=== PATIENT | male | born 1960 | race Caucasian/White ===

== ENCOUNTER 2016-09-11 12:37 | Day surgery (SDC) | payer OTHER ==
[~2016-09-11] VITALS: Ht 188 cm; Wt 90.5 kg
[~2016-09-11 12:37] MED LIST: GABA300C3 PO; LANSO15 PO; MISC1TAB9 PO; NAPR250T57 PO; VITA200017 PO; ZOCO40TA PO; [UNRECOGNIZED DRUG - CODE]; [UNRECOGNIZED DRUG - CODE] PO
[2016-09-11 13:27] VITALS: BP 143/81; PULSE 57; RESP 18; TEMP 97.8; O2SAT 100
[2016-09-11] MEDS ORDERED: NS 1000P @30 MLS/HR (KVO) IV SCH (13:30)
[2016-09-11 13:38] LABS: AUTOMATED NEUTROPHIL # 2.1 TH/MM3 (1.8-7.7); BASOPHIL % 0.7 % (0.0-2.0); EOSINOPHIL # 0.1 TH/MM3 (0-0.4); EOSINOPHIL % 3.3 % (0.0-4.0); HEMATOCRIT 41.4 % (39.0-51.0); HEMO FLAGS DIFF FINAL; LYMPHOCYTE # 1.8 TH/MM3 (1.0-4.8); MEAN CELL VOLUME 93.6 FL (80.0-100.0); MEAN CORPUSCULAR HEMOGLOBIN 30.7 PG (27.0-34.0); MEAN CORPUSCULAR HGB CONC 32.8 % (32.0-36.0); MONO % 7.2 % (0.0-8.0); NEUT % 47.8 % (16.0-70.0); PLATELET COUNT 176 TH/MM3 (150-450); RED BLOOD COUNT 4.43 MIL/MM3 (4.50-5.90); RED CELL DISTRIBUTION WIDTH 13.3 % (11.6-17.2); WHITE BLOOD COUNT 4.4 TH/MM3 (4.0-11.0)
[2016-09-11 13:46] LABS: APTT (PATIENT) 26.6 SEC (24.3-30.1); PROTHROMBIN TIME - PATIENT 10.7 SEC (9.8-11.6)
[2016-09-11 14:02] LABS: BICARBONATE 27.7 MEQ/L (21.0-32.0)
[2016-09-11] MEDS ORDERED: IOHEXOL 350 MG/ML 50 ML BTL (for Cath Lab) OTHER ONE (14:40)
[2016-09-11] MEDS ORDERED: HEPARIN-NS/PF INJ 500 ML ONE (14:43)
[2016-09-11] MEDS ORDERED: HEPARIN SODIUM - IV 10,000 UNITS/10 ML VIAL ONE (14:44)
[2016-09-11] MEDS ORDERED: NITROGLYCERIN INJ 5 ML ONE (14:44)
[2016-09-11] MEDS ORDERED: VERAPAMIL HCL 5 MG/2 ML VIAL ONE (14:44)
[2016-09-11] MEDS ORDERED: diphenhydrAMINE HCL 50 MG/ML VIAL ONE (14:47)
[2016-09-11] MEDS ORDERED: MIDAZOLAM HCL 2 MG/2 ML VIAL ONE (14:48)
[2016-09-11] MEDS ORDERED: HYDROCORTISONE SOD SUCCINATE 100 MG VIAL ONE (14:48)
[2016-09-11] MEDS ORDERED: SODIUM CHLOR 0.9% 1000 ML INJ 400 ML IV STA (15:15)
--- NOTE | 2016-09-11 15:16 | CATHPROC ---
[facility] HIS Report Study Information Study Number Admission Scheduled Start Study Start [id number] Sep 11 2016 12:37PM 09/11/2016 Sep 11 2016 2:41PM [place] Service Cardiac Catheterization Admit Source Facility Department Other [facility] Physician and Clinical Staff Initial Maryse Casper [employer] Lead Jamel LAW, Micah Other cathlab, cathlab Recorder Bradly Calderon RCIS(BS) [place],RT(R) Procedures Performed Procedure Location (Site) Vessel Name Coronary Angiograms LCA Left Coronary Coronary Angiograms RCA Right Coronary L Heart Cath LV Gram-hand inj. LV LV Ventricle Equipment Time Supervisor Finishing Description Size Mfg Part Number Used/Scraped TRANSDUCER, TRUWAVE [id number] 14:50 COS[employer] MADRIGAL * Used W/STOCKCOCK *[id number] 14:50 [employer] PACK, CCL CUSTOM * Used *[id number] 14:50 [employer] SUPPORT, ARTERIAL ADULT [id number] Used [id number] 14:50 [email or web address] PACER PEN, SKIN DUAL W/ RULER * Used *[id number] BAND, RADIAL COMPRESSION TR [id number] 15:09 [employer] 24CM Used SHORT 24 *[id number] 14:50 [employer] WIRE, EXCHANGE 260CM 3MMJ 260CM Used *[id number] 14:50 N[employer] MANIFOLD, 4 PORT * Used *[id number] 14:50 [employer] TUBING, HIGH PRESSURE 20" 20" Used *[id number] 14:50 [employer] OMNIPAQUE, 350 MG, 150ML 150ML [id number] Used [id number] 14:50 [employer] BLANKET,WARM AIR CCL * Used *[id number] CATHETER, FR5 OPTITORQUE [id number] 15:04 [employer] FR 5 Used RADIAL TIG 4.0 *[id number] SHEATH, FR6 TRANSRADIAL [id number] 14:50 [employer] FR 6 Used SLENDER 10CM *[id number] History: Allergies Allergy Reaction Iodine Oxycodone Penicillin Gabapentin Hydromorphone Phenytoin History: Risk Factors Family History of Hypertension Dyslipidemia Previous MO Previous Heart Failure Premature CAD No Yes No No No Prior Valve Prior PCI Prior CABG Surgery No No No Cerebrovascular Peripheral Artery Chronic Lung On Dialysis Diabetes Disease Disease Disease No No No Yes No History: Symptoms/Diagnosis Selection Items Chest pain History: Stress Tests Stress or Imaging Studies Performed Yes Standard Exercise Stress Stress Test Result Stress Test Ischemia Risk/Extent Test Yes Positive Unavailable Stress Echo No Stress Test SPECT Stress Test SPECT Result Stress Test SPECT Ischemia Risk/Extent Yes Positive Unavailable Stress Test CMR No Cardiac CTA Coronary Calcium Score No No History: Other Current Smoker No Labs Hgb (g/dl) Hct (%) WBC (l/cumm) Platelets (thousands) 11.60-17.00 35.00-51.00 4.00-11.00 150.00-450.00 13.6 41.4 4.4 176 Glucose (mg/dl) BUN (mg/dl) Creatinine (mg/dl) BUN:Creatinine (1:x) 74.00-106.00 7.00-18.00 0.50-1.30 10.00-20.00 92 13 0.9 14.4 Na (meq/l) K (meq/l) 136.00-145.00 3.50-5.10 142 4 INR (PTT:PT) 0.90-1.10 1 CPK-MB (ng/ML) 0.50-3.60 Not Drawn Medication Medication Total Dose (Bolus/Oral) Medication Total Dosage/Unit 1% XYLOCAINE 3 mL BENADRYL 25 mg RADIAL COCKTAIL 5 mL (Bolus) SOLU-CORTEF 100 mg VERSED 2 mg Medications (Bolus/Oral) Medication Time Given Dosage/Unit Administered By Reason SOLU-CORTEF 09/11/2016 2:53:02 PM 100 mg Micah Mccullough RN 100 mg SOLU-CORTEF given in lab by Mciah Mccullough RN in Left Antecubital via Peripheral IV. Ordered by Maryse Sheikh. BENADRYL 09/11/2016 2:54:02 PM 25 mg Micah Mccullough RN 25 mg BENADRYL given in lab by Micah Mccullough RN in Left Antecubital via Peripheral IV. Ordered by Maryse Bryan. VERSED 09/11/2016 2:57:02 PM 2 mg cathlab, cathlab 2 mg VERSED given in lab by priscilla redmondlab in Left Antecubital via Peripheral IV. Ordered by Maryse Sheikh. 1% XYLOCAINE 09/11/2016 3:01:02 PM 3 mL Maryse Sheikh 3 mL 1% XYLOCAINE given in lab by Maryse Sheikh in Right Radial via Subcutaneous. Ntg 200mcg Verapamil 2.5mg Heparin RADIAL COCKTAIL 09/11/2016 3:02:33 PM 5 mL (Bolus) Maryse Sheikh 2000U 5 mL (Bolus) RADIAL COCKTAIL given in lab by Maryse Sheikh in Right Radial via Radial. Using [Solutio n Name]. Reason: Ntg 200mcg Verapamil 2.5mg Heparin 2000U. Medication (Drip) Medication Time Given Dosage/Unit Concentration/Unit Diluent (ml) Solutio n IV Solutions 09/11/2016 2:40:50 PM 0 mL (IV) 500 NaCl .9 Patient arrived on IV Solutions given by cathlab, cathlab in Left Antecubital via Peripheral IV. Pump /Drip Flow = 20 ml/hr using NaCl .9. Ordered by Maryse Sheikh. Initial Case Assessment Cardiovascular HR Rhythm NIBP Chest Pain 68 sinus 130/77 0 Edema Present Skin color Skin None Normal Warm Dry Circulatory - Right Pulses Dorsalis Pedis Femoral Radial 3 3 3 Scale (0,1,2,3,4,d) Scale (0,1,2,3,4,d) Neurological State Oriented to time-place- Alert Moves all extremities person Respiration - General Respiration Rate SpO2 (%) (B/min) 15 100 Final Case Assessment Cardiovascular HR Rhythm NIBP Chest Pain 66 sinus 106/56 0 Edema Present Skin color Skin None Normal Warm Dry Circulatory - Right Pulses Dorsalis Pedis Femoral Radial 3 3 3 Scale (0,1,2,3,4,d) Scale (0,1,2,3,4,d) Neurological State Oriented to time-place- Alert Moves all extremities person Respiration - General Respiration Rate SpO2 (%) (B/min) 15 95 Chronological Log Time Study Chronological Log 14:40:39 Patient arrived via Bed. 14:40:40 Patient Name, D.O.B, / Armband Verified By R.N. 14:40:40 Consent signed by the physician and the patient and verified by the [facility] staff. Verbal Stimulation=~VERBAL~ Physical Stimulation=~PHYSICAL~ Airway=~AIRWAY~ Respiration=~RESPIR ATION~ 14:40:41 TOTAL=~TOTAL~. (0=absent, 1=limited, 2=present) 14:40:41 Pre-op and post- op instructions given; patient acknowledges understanding of instructions. 14:40:42 Presedation assessment performed by [facility] RN. 14:40:43 Immediate Presedation assesment performed by physician. 14:40:43 Patient has been NPO for More than 6Hrs. 14:40:44 Skin Breakdown- none per patient 14:40:45 Patient Warmer Placed on the Table. 14:40:48 Donn Prominences Protected 14:40:49 A # 20 IV was noted in the Antecubital (left). Grade = 0 Patient arrived on IV Solutions given by cathlab, cathlab in Left Antecubital via Peripheral IV . Pump/Drip Flow = 20 14:40:50 ml/hr using NaCl .9. Ordered by Maryse Sheikh. 14:40:50 History and physical on the chart or being dictated. Vitals capture started with the following parameters, Patient=Adult, Interval=5 min, Initial Pr xaktlw=974 mmHg, 14:45:53 Deflation Rate=5 mmHg, Cuff placed on Right Arm Vitals capture started with the following parameters, Patient=Adult, Interval=5 min, Initial Pr kifmiz=494 mmHg, 14:46:26 Deflation Rate=5 mmHg, Cuff placed on Right Arm 14:47:06 HR=69 bpm, FBUL=326/77 mmhg, SpO2=99.0 %, Resp=19 B/min, Pain=0, Yoselin=10, Garza=2 Assessment: Initial Case, HR=68 BPM, Rhythm=sinus, ELXN=532/77 mmhg, Chest Pain=0, Edema=None, Color=Normal, Skin = Warm, Dry 14:50:42 Right Pulses: Jefe Ped=3, Femoral=3, Radial=3 Neurological: State=Alert, Ox3, VASQUEZ Respiration: Resp=15 B/min, ArD6=319 % 14:50:43 Reference ECG taken 14:51:31 Right Radial and groin(s) prepped with 2% chlorhexidine, and with a 3 min. waiting time. 14:52:01 HR=68 bpm, DZBC=772/85 mmhg, SpO2=98.0 %, Resp=20 B/min, Pain=0, Yoselin=10, Garza=2 14:53:02 100 mg SOLU-CORTEF given in lab by Micah Mccullough RN in Left Antecubital via Peripheral IV. O rdered by Maryse Sheikh. 14:54:02 25 mg BENADRYL given in lab by Micah Mccullough RN in Left Antecubital via Peripheral IV. Order ed by Maryse Sheikh. 14:55:46 MD arrived. 14:56:01 Contrast Scanned 14:56:02 Immediate Presedation assesment performed by physician. 14:57:02 2 mg VERSED given in lab by cathlab cathlab in Left Antecubital via Peripheral IV. Ordered by Maryse Sheikh. 14:57:04 HR=72 bpm, NIBP=98/72 mmhg, NvG6=490.0 %, Resp=15 B/min, Pain=0, Yoselin=10, Garza=2 Time Out. Correct patient, correct procedure,correct physician, ,power injector not loaded with contrast with surgical 14:59:17 team present. Time Out Concurred by MD, individual staff in procedure 14:59:24 Case Start 14:59:25 Verbal Stimulation=2 Physical Stimulation=2 Airway=2 Respiration=2 TOTAL=8. (0=absent, 1=li mited, 2=present) Vitals capture started with the following parameters, Patient=Adult, Interval=5 min, Initial Pr tvkzft=424 mmHg, 14:59:38 Deflation Rate=5 mmHg, Cuff placed on Right Arm 15:00:49 HR=64 bpm, BVMB=287/67 mmhg, SpO2=98.0 %, Resp=15 B/min, Pain=0, Yoselin=10, Garza=2 15:00:58 Pressure channel 1 zeroed. 15:01:02 3 mL 1% XYLOCAINE given in lab by Maryse Sheikh in Right Radial via Subcutaneous. 15:02:05 Access site was Right Radial Artery. A SHEATH, FR6 TRANSRADIAL SLENDER 10CM FR 6 was advanced into the Radial (right) using the Perc utaneous 15:02:15 technique. 5 mL (Bolus) RADIAL COCKTAIL given in lab by Maryse Sheikh in Right Radial via Radial. Using [S olution Name]. Reason: 15:02:33 Ntg 200mcg Verapamil 2.5mg Heparin 2000U. A CATHETER, FR5 OPTITORQUE RADIAL TIG 4.0 FR 5 was advanced over a wire. OMNIPAQUE, 350 MG, 150 ML 150ML 15:03:07 was used for injections. Recorded Pressure: LV, HR=68, Condition=Condition 1 15:05:09 (Left Ventricle) LV 99/-4/4 15:05:16 HR=71 bpm, GKNM=497/56 mmhg, SpO2=95.0 %, Resp=16 B/min, Pain=0, Yoselin=10, Garza=2 15:05:16 The LV was manually injected with 10 cc's and visualized. OMNIPAQUE, 350 MG, 150ML 150ML us ed. Recorded Pressure: LV, Ao, HR=64, Condition=Condition 1 15:05:34 (Left Ventricle) LV 97/3/4, (Aorta) Ao 98/61/77 15:05:49 The LCA was injected and visualized at various angles. OMNIPAQUE, 350 MG, 150ML 150ML used . 15:07:07 The RCA was injected and visualized at various angles. OMNIPAQUE, 350 MG, 150ML 150ML used . Recorded Pressure: Ao, HR=66, Condition=Condition 1 15:07:18 (Aorta) Ao 108/67/85 15:08:53 Catheter was removed 15:09:10 Case End Assessment: Final Case, HR=66 BPM, Rhythm=sinus, ZMAO=563/56 mmhg, Chest Pain=0, Edema=None, Color=Normal, Skin = Warm, Dry 15:09:16 Right Pulses: Jefe Ped=3, Femoral=3, Radial=3 Neurological: State=Alert, Ox3, VASQUEZ Respiration: Resp=15 B/min, SpO2=95 % 15:10:11 HR=67 bpm, JDSW=577/68 mmhg, SpO2=97.0 %, Resp=15 B/min, Pain=0, Yoselin=10, Garza=2 Radial Compression Device Used. 13 mLs of air placed in BAND, RADIAL COMPRESSION TR SHORT 24 24 CM. Affected 15:11:20 hand 97 % O2 saturation. 15:11:33 No case complications noted. 15:11:33 Sterile dressing applied to site 15:11:38 No case complications noted. 15:11:39 Cine recording checked. 15:11:41 Bedside Report will be given. 15:11:43 Contrast Scanned 15:11:46 Verbal Stimulation=2 Physical Stimulation=2 Airway=2 Respiration=2 TOTAL=8. (0=absent, 1=li mited, 2=present) 15:11:56 A Left Heart Cath was performed. 15:15:23 Vitals capture stopped. 15:15:24 Patient moved to stretcher End Study - Contrast Media Used In Study Contrast Total Opened (mL) Total Used (mL) Total Wasted (mL) Omnipaque 40 40 0 End Study - Maximum Contrast Load Max Contrast Load (mL) 500.0 End Study - Radiation Exposure Fluoro Time (minutes) 2.8 End Study - Patient Disposition Complications Transferred To Interventional Outcome No [facility] No attempt made
[2016-09-11] MEDS ORDERED: HYDROCORTISONE SOD SUCCINATE 100 MG VIAL IV SCH (16:00)
[2016-09-11] MEDS ORDERED: diphenhydrAMINE HCL 50 MG/ML VIAL IV SCH (16:00)
--- NOTE | 2016-09-13 18:55 | MA ---
cc: CORY DUFFY M.D. DATE 09/11/16 INDICATIONS This is a 55-year-old male, persistent chest pain and abnormal stress test. PROCEDURE PERFORMED Left heart catheterization, angiogram, left ventriculogram. PROCEDURE NOTE After obtaining informed consent, the patient in a fasting state was brought to the cook house laborer. The right radial wrist was sterilized and draped with sterile drapes. 1% Xylocaine was used to locally anesthetize the area. A 6 [place] sheath was used to access the right radial artery. A [place] catheter was used to intubate the left main, perform left ventriculogram and intubate right coronary artery. End of the procedure __ applied after taking the sheath out. Sent back to his room in stable condition. No complications. CORONARY ANGIOGRAM The left main coronary artery is a medium size vessel bifurcates in the left anterior descending. Left circumflex artery, left main has no significant disease. The left anterior descending coronary artery and its branches have no significant disease. Left circumflex artery and its branches have no significant disease. The right coronary artery dominant with no significant disease. Medium sized vessel. LEFT VENTRICULOGRAM The ejection fraction is estimated to be 55%. No pressure gradient across the aortic valve. The left ventricular end-diastolic pressure is 14. Aortic pressure is 110/17. Medical management to continue. Sent back to his room in stable condition. POSTOPERATIVE DIAGNOSIS No significant coronary artery disease. Preserved systolic performance of the left ventricle. MD PASCALE Martines/JESSIE /3:11 PM /6:35 PM
== END 2016-09-11 18:40 | disposition home or self-care (01) ==
LOC: HDOC 12:37 → HDIC 12:39 → HDOC 18:40
PROVIDERS: ATTEND Internal Medicine Cardiovascular Disease
DX: I20.9 Angina pectoris, unspecified (principal); R94.39 Abnormal result of other cardiovascular function study
CPT/HCPCS: 80048; 85025; 85610; 85730; 93458; C1769; C1893; J1200; J1644; J1720; J2250; Q9967